=== PATIENT | female | born 1975 | race African-American/Black ===

== ENCOUNTER 2016-09-17 05:46 | Inpatient (IN) | payer BC ==
--- NOTE | 2016-09-04 12:16 | Diagnostic Imaging Report ---
Indication: COUGH Technique: One view of the chest Comparison: none Findings: There is thoracolumbar scoliotic deformity, with compensatory upper thoracic curvature. Lungs and pleural spaces are clear. Heart size is normal. Impression: No acute process
--- NOTE | 2016-09-16 23:00 | Pre-op HX & Phy Repo 2 SIG ---
DATE OF ADMISSION: 09/17/2016 CHIEF COMPLAINT: Vaginal bleeding, low abdominal pain. HISTORY OF PRESENT ILLNESS: This is a 40-year-old female, who presented to our office on 05/13/2016 with a chief complaint of irregular bleeding, persistent low abdominal pain, persistent dysmenorrhea, and dyspareunia. The patient was trying to control her condition with pain medication with no success. Then, later she underwent fractional D&C and hysteroscopy, which did not reveal any precancerous or cancerous changes, but prominent adenomyosis with diagnosed ulcer on the pelvic exam and ultrasound. The patient expressed strong desire to have a hysterectomy and to stop her problems. She is not able to tolerate medical treatment. She signed the consent. All her questions for hysterectomy were answered. PAST MEDICAL HISTORY: Her previous medical history includes irritable bowel syndrome. She denies heart disease, lung disease, or liver disease. She denies previous surgery. ALLERGIES: She does not have any allergy. SOCIAL HISTORY: The patient does not smoke, does not use alcohol, and does not use recreational drugs. She is an associate engineer. REVIEW OF SYSTEMS: Noncontributory besides problems mentioned above. PHYSICAL EXAMINATION: GENERAL: Revealed a well-developed and well-nourished female, in no acute distress. VITAL SIGNS: Stable. SKIN: No lesions. HEENT: Head, normocephalic and traumatic. Eyes, pupils reactive to light and accommodation. Ears, tympanic membranes intact. Nose, good hygiene. NECK: Supple without thyromegaly or lymphadenopathy. LUNGS: Clear to percussion and auscultation. HEART: Rate is regular. S1 and S2. BREASTS: No masses. Nipples without discharge. ABDOMEN: Soft and nontender. Bowel sounds present. Costovertebral angle is nontender. PELVIC: Revealed [place], urethral, and [place] glands within normal limits. Normal vagina. No lesions. Cervix closed. Uterus, 19 weeks size, bulky. Adnexa, no masses. EXTREMITIES: No edema. No erythema. LABORATORY DATA: Workup included HCG negative. Her GTT was normal. Her WBC 7.9, RBC 3.9, hemoglobin 11.7, hematocrit 35, and platelets count 300,000. DIAGNOSES: 1. Low abdominal pain. 2. Dysmenorrhea. 3. Dyspareunia. 4. Irregular vaginal bleeding. 5. Menorrhagia. PLAN: 1. Laparoscopic-assisted vaginal hysterectomy. 2. Bilateral salpingo-oophorectomy if possible. Radha Jackman M.D. DR: CLINT JOB#: [id number] CC:
[~2016-09-17] VITALS: Ht 170.2 cm; Wt 60.3 kg
[2016-09-17] VITALS (17 sets, daily range): BP systolic 98–121; BP diastolic 54–74
[2016-09-17] MEDS ORDERED: cefOXitin 1gm/D5W 55ml IVPB ONE ×2 (06:00)
[2016-09-17] MEDS ORDERED: FERROUS SULFAT325 MG ORAL (06:58)
[2016-09-17] MEDS ORDERED: Ropivacaine 5mg/ml Vial 20ml INJ ONE (07:07)
--- NOTE | 2016-09-17 07:17 | Anethesia Preoperative Eval ---
Anesthesia Pre-op PMH/ROS General Date of Evaluation: Sep 17, 2016 Anesthesiologist: Evin ASA Score: ASA 2 Mallampati Score Class I : Soft palate, uvula, fauces, pillars visible Class II: Soft palate, uvula, fauces visible Class III: Soft palate, base of uvula visible Class IV: Only hard plate visible Mallampati Classification: Class I Surgeon: Augustina Diagnosis: Fibroids Surgical Procedure: Supracervical hysterectomy Anesthesia History: none Family History: no anesthesia problems Allergies: Coded Allergies: No Known Allergies (Unverified , 09/10/16) Medications: see eMAR Past Medical History Cardiovascular: Denies: CAD, HTN, PA, arrhythmia, other, valve dz Pulmonary: Denies: COPD, ANGELA, asthma, other Gastrointestinal/Genitourinary: Denies: CRI, ESRD, GERD, other Neurologic/Psychiatric: Denies: CVA, TIA, dementia, depression/anxiety, other Endocrine: Denies: DM, hypothyroidism, other, steroids HEENT: Denies: [place] (L), [place] (R), cataract (L), cataract (R), glaucoma, other Hematology/Immune: Reports: anemia - chronic, Denies: DVT, bleeding disorder, other Musculoskeletal/Integumentary: Denies: DDD, DJD, OA, RA, edema, other PSxH Narrative: Denies Anesthesia Pre-op Phys. Exam Physician Exam Last Vital Signs Date Time Temp Pulse Resp B/P Pulse Ox O2 Delivery O2 Flow Rate FiO2 09/17/16 06:39 98.2 78 18 107/71 100 Room Air Constitutional: NAD Cardiovascular: RRR Respiratory: CTA Airway Exam Mallampati Score: Class I MO: full ROM: full Teeth: intact Anesthesia Pre-op A/P Labs see chart Urine Test Test 09/17/16 06:30 Urine HCG, Qualitative Negative Risk Assessment & Plan Assessment: ASA II Plan: GA Status Change Before Surgery: No Pre-Antibiotics Drug: Ancef 1g Given Within 1 Hr of Incision: DAVID Whitaker M.D. Sep 17, 2016 07:17
[2016-09-17] MEDS ORDERED: Dexamethasone 4mg/ml vial ONE (07:30)
[2016-09-17] MEDS ORDERED: Midazolam 2mg/2ml Inj ONE ×2 (07:30→14:30)
[2016-09-17] MEDS ORDERED: ProvayBlue 5mg/ml 10ml amp INJ ONE (07:30)
[2016-09-17] MEDS ORDERED: Nimbex 2mg/ml Inj 10ML IVP ONE ×2 (07:30→14:30)
[2016-09-17] MEDS ORDERED: Propofol 10mg/ml 20ml IV ONE ×2 (07:30→14:30)
[2016-09-17] MEDS ORDERED: Lidocaine 1% MPF 10mg/ml 5ml ONE (07:30)
[2016-09-17] MEDS ORDERED: Ketorolac 30mg Inj ONE ×2 (07:30→14:30)
[2016-09-17] MEDS ORDERED: LR 1000ml ONE (07:30)
[2016-09-17] MEDS ORDERED: fentaNYL 250mcg/5ml ONE (07:30)
[2016-09-17] MEDS ORDERED: Metoclopramide 10mg/2ml Inj ONE (07:30)
[2016-09-17] MEDS ORDERED: Sterile Water Irrig 1000ml IRRIG ONE ×2 (09:00→14:30)
[2016-09-17] MEDS ORDERED: NS Irrig 1000ml ONE ×2 (09:00→14:30)
[2016-09-17] MEDS ORDERED: LR 1000ml 1,000 ML IVLG SCH (09:10)
[2016-09-17] MEDS ORDERED: DiphenhydrAMINE 50mg/ml Inj IVP PRN (09:15)
[2016-09-17] MEDS ORDERED: fentaNYL 100 mcg/2 mL IV PRN (09:15)
[2016-09-17] MEDS ORDERED: Metoclopramide 10mg/2ml Inj IVP PRN (09:15)
[2016-09-17] MEDS ORDERED: Midazolam 2mg/2ml Inj IVP PRN (09:15)
[2016-09-17] MEDS ORDERED: Ketorolac 30mg Inj IV PRN (09:15)
[2016-09-17] MEDS ORDERED: Hydromorphone 0.5mg/0.5ml inj IVP PRN (09:15)
--- NOTE | 2016-09-17 09:53 | Pre-Procedure Note/Attestation ---
Pre-Procedure Note/Attestation Complete Prior to Procedure Planned Procedure: bilateral Procedure Narrative: LAVH, Bilateral Salpingectomy Indications for Procedure Pre-Operative Diagnosis: Abnormal Uterine Bleeding Attestation I attest that I discussed the nature of the procedure; its benefits; risks and complications; and alternatives (and the risks and benefits of such alternatives ), prior to the procedure, with the patient (or the patient's legal fundraising sale representative). I attest that, if there was a reasonable possibility of needing a blood transfusion, the patient (or the patient's legal fundraising sale representative) was given the [facility] standardized written summary, pursuant to the Juan Ritchey Blood Safety Act ([place] Health and Safety Code # 1645, as amended). I attest that I re-evaluated the patient just prior to the surgery and that there has been no change in the patient's H&P, except as documented below:NONE LIOR STEVENSON Sep 17, 2016 09:53
--- NOTE | 2016-09-17 09:59 | Brief Operative Note ---
Immediate Post Operative Note Operative Note Pre-op Diagnosis: Abnormal Uterine Bleeding Procedure: LAVH, Bilat Salpingectomy Post-op Diagnosis: same as pre-op Surgeon: Lior Stevenson Real Estate Acquisition Analyst: Ivonne Iglesias Anesthesiologist: Rohit Anesthesia: general Specimen: yes Complications: none Condition: stable Fluids: LR @ 150 cc /hr Estimated Blood Loss: minimal Drains: none Implant(s) used?: No - Uterus, Cervix, Biteral Tubes LIOR STEVENSON Sep 17, 2016 09:59
[2016-09-17] MEDS ORDERED: Tylenol #3 tab (300mg/30mg) ORAL PRN (10:00)
[2016-09-17] MEDS ORDERED: Norco 5mg/325mg tab ORAL PRN (10:00)
[2016-09-17] MEDS ORDERED: Ketorolac 60mg Inj IM ONE (10:00)
[2016-09-17] MEDS ORDERED: HYDROmorphone 1mg/ml Carpuject SUBQ PRN ×2 (10:00→17:00)
--- NOTE | 2016-09-17 10:01 | Immediate Post-Op Evaluation ---
Immediate Post-Op Evalulation Immediate Post-Op Evalulation Procedure: Laparoscopic supracevical hysterectomy Date of Evaluation: Sep 17, 2016 Time of Evaluation: 10:02 IV Fluids: 1.8L Blood Products: 0 Estimated Blood Loss: 100 Urinary Output: 150 Blood Pressure Systolic: 98 Blood Pressure Diastolic: 57 Pulse Rate: 78 Respiratory Rate: 16 O2 Sat by Pulse Oximetry: 100 Temperature (Fahrenheit): 98.5 Pain Score (1-10): 0 Nausea: No Vomiting: No Complications 0 Patient Status: awake, reacts, patent, none Hydration Status: adequate Drug: Ancef 1g Given Within 1 Hr of Incision: Yes Time Given: 07:45 DAVID PINEDA M.D. Sep 17, 2016 10:01
[2016-09-17] MEDS: Ketorolac 30mg Inj IV SCH ×3 (11:02→23:59)
[2016-09-17] MEDS: D5 1/2NS 1,000 ML IV SCH (13:38)
[2016-09-17] MEDS ORDERED: fentaNYL 100 mcg/2 mL IV ONE (14:30)
[2016-09-17] MEDS ORDERED: Neostigmine 1mg/ml 10ml Inj ONE (14:30)
[2016-09-17] MEDS ORDERED: Morphine Sulfate 10mg/ml Inj ONE ×2 (14:30)
[2016-09-17] MEDS ORDERED: Glycopyrrolate 0.2mg/ml 1ml Vial ONE (14:30)
--- NOTE | 2016-09-17 17:30 | Operative Note - Dictated ---
PREOPERATIVE DIAGNOSIS: Persistent uterine bleeding not responding to hormonal treatment or minimally invasive surgical treatment. POSTOPERATIVE DIAGNOSIS: Persistent uterine bleeding not responding to hormonal treatment or minimally invasive surgical treatment. PROCEDURE PERFORMED: Laparoscopically assisted vaginal hysterectomy and bilateral salpingectomy. SURGEON: Magdy Jackman M.D. SPECIAL EVENTS FUNDRAISER: Ivonne Iglesias M.D. ANESTHESIA: General endotracheal. ANESTHESIOLOGIST: Dr. Mehreen Dolan. PROCEDURE IN DETAIL: After all the appropriate consents were signed, the patient was brought to the operating room and placed on table in supine position. General endotracheal anesthesia was induced without complication. The patient was then placed in a dorsal lithotomy position. Perineum, vagina, and abdomen were prepped and draped in usual fashion for the procedure. The procedure then continued with the vaginal approach where the cervix was grasped, dilated, and uterine manipulator was introduced. The abdominal procedure was then undertaken next where umbilical incision was made. Veress needle was advanced and the abdomen was insufflated to 15 mmHg. The procedure then continued with bilateral evaluation of the tubes and ovaries. The ovaries on the right and left side were within normal limits. The tubes were now visualized and the mesial salpinx was coagulated and cut. This continued until the round ligaments were reached on the right side. The round ligaments were now coagulated and cut followed by the utero-ovarian ligaments. Once the utero-ovarians were cut, the anterior sheath of the broad ligament was incised. Now, the attention was turned to the left side and the same procedure was completed on the left side with the bladder flap being developed after the left span of the broad ligament was incised. Once the bladder flap was developed, the broad ligament on the right was cut and coagulated. This continued until the uterine vessels were reached. The were now well identified, that were coagulated and cut with a complete hemostasis. The same procedure was performed on the left side and once the left uterine vessels were coagulated and cut, the anterior cuff of the vagina was visualized and outlined with vaginal retractor. The vagina was incised with the retractor protruding into the peritoneal cavity. At this time, the procedure continued vaginally, the cervix was grasped, and the uterus was flipped into the vagina anteriorly. The pedicles were now clamped, cut, and suture ligated and the posterior cuff was also clamped bilaterally and cut. The posterior cuff was suture ligated with #0 Vicryl suture. At this time, the bladder pursestring was placed bringing the peritoneum and closing the peritoneum. At this time, the vaginal cuff was closed using #0 Vicryl suture in a running fashion. The procedure then continued back to the abdominal portion with laparoscopy evaluating all the pedicles and the pedicles were fully hemostatic. Once complete hemostasis was achieved in the pelvis, instruments were removed one after another under direct visualization with the laparoscope. The incisions were closed using #0 Vicryl suture at the fascia layer and 4-0 suture at the skin layer covered with Steri-Strips and benzoin. Magdy Jackman M.D. DR: JOVI JOB#: [id number] CC:
[2016-09-18] VITALS: BP 98/56
[2016-09-18 04:00] VITALS: BP 92/55
[2016-09-18] MEDS: Ketorolac 30mg Inj IV SCH ×3 (05:43→17:00)
[2016-09-18 08:04] VITALS: BP 97/50
[2016-09-18] MEDS: D5 1/2NS 1,000 ML IV SCH ×2 (09:30)
[2016-09-18] MEDS ORDERED: D5 1/2NS 1000ml IV ONE (09:57)
--- NOTE | 2016-09-18 11:34 | 48 Hour Post Anesthesia Eval ---
Post Anesthesia Evaluation Procedure: Laparoscopic supracevical hysterectomy Date of Evaluation: Sep 18, 2016 Time of Evaluation: 09:53 Blood Pressure Systolic: 97 0: 50 Pulse Rate: 74 Respiratory Rate: 19 Temperature (Fahrenheit): 98.2 O2 Sat by Pulse Oximetry: 98 Airway: patent Nausea: No Vomiting: No Pain Intensity: 2 Hydration Status: adequate Cardiopulmonary Status: Stable Mental Status/LOC: patient returned to baseline Follow-up Care/Observations: 0 Post-Anesthesia Complications: 0 Follow-up care needed: N/A Bello Hylton MD Sep 18, 2016 11:34
[2016-09-18 12:07] VITALS: BP 107/68
[2016-09-18 16:12] VITALS: BP 105/63
--- NOTE | 2016-09-18 17:23 | Discharge Summary ---
Discharge Summary Hospital Course Date of Admission Sep 17, 2016 at 05:46 Date of Discharge 09/18/2016 Admitting Diagnosis Irregular uterine bleeding Reason for Hospitalization: LAVH, bilateral Salpingectomy HPI Anjana Sparks is a 40 year old female who was admitted on Sep 17, 2016 at 05:46 for Uterine Fibroids, Bronchitis Consultations NONE Procedures LAVH, Bilat Salpingectomy Hospital Course Uncomplicated Discharge Condition Upon Discharge: stable Discharge Disposition Patient was discharged to HOME Discharge Diagnoses: LIOR STEVENSON Sep 18, 2016 17:23
== END 2016-09-18 18:00 | disposition home or self-care (01) | DRG 743 ==
LOC: SDSOVERFLO 05:46 → 3E 12:25
PROC: 0UT7FZZ Resection of Bilateral Fallopian Tubes, Via Natural or Artificial Opening With Percutaneous Endoscopic Assistance (ICD-10-PCS; principal; 2016-09-17 07:30)
PROC: 0UT9FZZ Resection of Uterus, Via Natural or Artificial Opening With Percutaneous Endoscopic Assistance (ICD-10-PCS; principal; 2016-09-17 07:30)
DX: D25.9 Leiomyoma of uterus, unspecified (principal); K58.9 Irritable bowel syndrome, unspecified; N93.8 Other specified abnormal uterine and vaginal bleeding; N94.6 Dysmenorrhea, unspecified; R10.30 Lower abdominal pain, unspecified; N92.0 Excessive and frequent menstruation with regular cycle
CPT/HCPCS: 36415; 71020; 81025; 86850; 86900; 86901; 87081; 94003; 94150; J2250; J2405; J2710; J2765